=== PATIENT | male | born 1950 | race Asian ===

== ENCOUNTER 2018-05-22 20:45 | Emergency (ER) | payer MEDICARE, OTHER ==
[~2018-05-22] VITALS: Ht 167.6 cm; Wt 65.9 kg
[2018-05-22] MEDS ORDERED: SYNT125T PO (20:53)
[2018-05-22] MEDS ORDERED: METF10004 PO (20:53)
[2018-05-22] MEDS ORDERED: LIDOCAINE 1% SDV INJ 30 ML VIAL SC SCH (21:30)
[2018-05-22] MEDS ORDERED: LIDOCAINE 1% MDV 20ML VIAL SC SCH (21:30)
[2018-05-22] MEDS ORDERED: NORC1TAB4 PO ×2 (22:15→22:19)
[2018-05-22 22:42] VITALS: BP 154/74
--- NOTE | 2018-05-22 23:59 | REP ---
Clinical: Status post reduction. Technique: AP and oblique views of the left hand. Findings: The patient is status post satisfactory reduction at the first carpometacarpal joint . Overlying cast material limits evaluation. No obvious acute fracture. Impression: Satisfactory reduction. No acute fracture. Electronically Signed by Ferdinand Washington MD 05/22/2018 11:51 P
--- NOTE | 2018-05-23 | REP ---
Clinical: Status post reduction. Technique: AP and lateral views of the left wrist. Findings: The patient is noted to be post satisfactory reduction at the first carpometacarpal joint. No obvious acute fracture identified. Evaluation is limited due to overlying cast material. Impression: Limited by cast material. Satisfactory reduction at the first carpometacarpal joint. No obvious acute fracture. Electronically Signed by Ferdinand Washington MD 05/22/2018 11:52 P
--- NOTE | 2018-05-23 00:02 | REP ---
Clinical: Trauma. Technique: AP, lateral, bilateral oblique views of the left hand. Findings: Lateral dislocation at the first carpometacarpal joint is appreciated. No obvious acute fracture. Overlying soft tissue swelling suggested without subcutaneous emphysema or foreign body. Impression: Lateral dislocation at the carpometacarpal joint. Electronically Signed by Ferdinand Washington MD 05/22/2018 11:54 P
--- NOTE | 2018-05-23 00:03 | REP ---
Clinical: Trauma/fall. Technique: AP and lateral views of the left forearm. Findings: No acute fracture or dislocation is appreciated. Known first carpometacarpal joint dislocation is poorly evaluated on current examination. Impression: Normal appearance of the forearm without obvious acute fracture or dislocation. Known first carpometacarpal joint dislocation incompletely evaluated. Electronically Signed by Ferdinand Washington MD 05/22/2018 11:54 P
--- NOTE | 2018-05-23 09:15 | ER ---
DATE OF CONSULTATION: 05/22/2018 REASON FOR CONSULTATION: Left thumb dislocation. CHIEF COMPLAINT: Left thumb and wrist pain. HISTORY OF PRESENT ILLNESS: Young Kelley is a 67-year-old [id number] male who sustained a fall to outstretched left upper extremity earlier today after slipping on the ground and resulting in immediate left thumb pain and deformity and difficulty using his thumb. He presented to the emergency room for evaluation. He was found to have left thumb carpometacarpal dislocation. Orthopedics was consulted for definitive management. The patient denies any antecedent chest pain, calf pain, headache, dizziness, shortness of breath or other constitutional symptoms. He localizes pain to the left thumb. He denies any associated tingling, numbness or burning sensations. PAST MEDICAL HISTORY: Diabetes. Hypertension. Hypercholesterolemia. Thyroid cancer. MEDICATIONS: - metformin - Synthroid - antihypertensive and cholesterol medication, he does not know the names. ALLERGIES: NO KNOWN DRUG ALLERGIES. PAST SURGICAL HISTORY: Thyroidectomy. FAMILY HISTORY: Noncontributory. SOCIAL HISTORY: The patient is retired. He lives with his . He does not smoke, drink or use elicit drugs. REVIEW OF SYSTEMS: 14-point review of systems was reviewed and unremarkable. PHYSICAL EXAMINATION: Vital signs: Temperature 98.8, respiratory rate 16, blood pressure 166/88. Heart rate 84. General: This is a well-nourished male, appears stated age in no acute distress. Neurologic: He is awake, alert and oriented to person, place and time. He has intact sensory and motor function in his left upper extremity radial, medial, and ulnar anterior interosseous nerve (AIN) and posterior interosseous nerve (PIN) distributions. Cardiovascular: 2+ radial pulse. Brisk capillary refill to all digits to the left upper extremity. Musculoskeletal: Focused physical exam of the left upper extremity demonstrates obvious visible deformity about the thumb metacarpal base. He is maximally tender about the thumb metacarpal base. He is able to independently flex and extend at the left thumb IP joint but has difficulty moving the CMC joint He is able to flex and extend at the MCP joint. There are no open wounds or abrasions. RADIOGRAPHS: Plain radiographs of the wrist and hand demonstrate a dorsal carpometacarpal dislocation of the left thumb. PLAN: I discussed with the patient the nature of his injury, the risks, benefits, indications and alternatives of operative management and I believe this could be easily reduced with a closed reduction and splinting. The patient expressed understanding and provided written informed consent. PROCEDURE NOTE: The patient's skin was carefully prepped. I used 5 mL of 1% lidocaine without epinephrine and injected into the thumb carpometacarpal joint using mini C-arm fluoroscopic guidance. I then performed a closed reduction and placed the patient into a well-padded spike splint. I used mini C-arm fluoroscopy to confirm concentric reduction after splinting. This ended the procedure. The patient tolerated it well. POST PROCEDURE PLAN: Patient will be discharged from the ER today. He will follow up in the office in 7-10 days for repeat examination of the metacarpal base followed by transition to either removable splint or cast. VALERIANO
== END 2018-05-22 22:44 | disposition home or self-care (01) ==
LOC: M ED 20:45
DX: S63.045A Dislocation of carpometacarpal joint of left thumb, initial encounter (principal); W00.9XXA Unspecified fall due to ice and snow, initial encounter; Y92.89 Other specified places as the place of occurrence of the external cause; E11.9 Type 2 diabetes mellitus without complications; I10 Essential (primary) hypertension; E78.00 Pure hypercholesterolemia, unspecified; Z85.850 Personal history of malignant neoplasm of thyroid; Z79.899 Other long term (current) drug therapy; Z79.84 Long term (current) use of oral hypoglycemic drugs

== ENCOUNTER → 2019-04-08 | Outpatient (CLI) | payer MEDICARE, OTHER ==
[~2019-04-08] MED LIST: METF10004 PO; NORC1TAB7 PO; SYNT125T PO
--- NOTE | 2019-04-09 16:34 | ECHO ---
DATE OF PROCEDURE: 04/08/2019 AGE: 68 GENDER: Male HEIGHT: 66 inches WEIGHT: 155 pounds BODY SURFACE AREA: 1.79 m2 PATIENT LOCATION: Outpatient REFERRING PHYSICIAN: Dr. Marc Burch INDICATION: Hypertension/abnormal EKG. Coronary risk factors. 2-D MEASUREMENTS: RV: 2.4 cm LV: 5.3 cm Septum: 1.0 cm Posterior wall: 1.0 cm Aortic root: 3.7 cm LA: 3.8 cm LVEF: 65% DOPPLER MEASUREMENTS: AV: 1.21 m/s LVOT: 1.06 m/s LVOT diameter: 2.0 cm MV-E: 63, A: 74, EA ratio: 0.85 Early mitral deceleration time: 161 ms E prime medial: 5.4, A prime medial: 9.6, E prime lateral: 8.2 average E/E prime ratio 9.3 PCWP: 13.4 mmHg PV: 0.6 m/s Pulmonary artery acceleration time: 106 ms RVSP: 34 mmHg IVC: Could not be visualized. COMMENTS Normal sinus rhythm with subtle interventricular conduction disturbance. M-mode and two-dimensional echocardiography was performed with pulsed, continuous wave, color flow and tissue Doppler studies. Normal left ventricular size, wall thickness and wall motion. . Normal left atrial size but Doppler evidence of grade 1 LV diastolic dysfunction and borderline elevated estimated mean left atrial pressure. Normal right heart chamber sizes and motion with Doppler evidence of borderline pulmonary hypertension. Unable to visualize his inferior vena cava to further estimate his central venous pressure. Subtle aortic valvular sclerosis without stenosis and only trace insufficiency. Normal aortic root size. Normal-appearing mitral valvular apparatus leaflet excursion with very mild insufficiency (physiologic). Normal appearing tricuspid valve with mild insufficiency (physiologic). No apparent intracardiac mass or pericardial effusion. MTDD
== END ==
LOC: M CARPUL 08:16
PROVIDERS: ATTEND Internal Medicine
DX: E11.69 Type 2 diabetes mellitus with other specified complication (principal); E78.5 Hyperlipidemia, unspecified; R53.1 Weakness; Z79.899 Other long term (current) drug therapy

== ENCOUNTER → 2021-05-27 | Outpatient (REF) | payer OTHER ==
[2021-05-27 19:11] LABS: HEMOGLOBIN A1c 7.5 %
== END ==
LOC: M LAB REF 13:28
PROVIDERS: ATTEND Internal Medicine Endocrinology, Diabetes & Metabolism
DX: E11.65 Type 2 diabetes mellitus with hyperglycemia (principal); E89.0 Postprocedural hypothyroidism

== ENCOUNTER → 2021-08-30 | Outpatient (REF) | payer OTHER ==
[2021-08-30 18:01] LABS: CREATININE,RANDOM URINE 19.5 MG/DL; TOTAL PROTEIN,RANDOM URINE 23.6 MG/DL (0.0-12.0)
[2021-08-30 18:03] LABS: TOTAL PROTEIN 7.2 GM/DL (6.4-8.2)
[2021-08-31 14:52] LABS: ALBUMIN 4.25 GM/DL (3.29-5.55); ALPHA-1-GLOBULIN % 3.9 % (2.9-4.9); ALPHA-1-GLOBULINS 0.28 GM/DL (0.17-0.41); ALPHA-2-GLOBULINS 0.68 GM/DL (0.42-0.99); ALPHA-2-GLOBULINS % 9.5 % (7.1-11.8); BETA-1-GLOBULINS 0.38 GM/DL (0.28-0.60); BETA-1-GLOBULINS % 5.3 % (4.7-7.2); BETA-2-GLOBULINS 0.42 GM/DL (0.19-0.55); BETA-2-GLOBULINS % 5.8 % (3.2-6.5); GAMMA GLOBULIN % 16.5 % (11.1-18.8); GAMMA GLOBULINS 1.19 GM/DL (0.65-1.58)
== END ==
LOC: M LAB REF 16:55
PROVIDERS: ATTEND Internal Medicine Nephrology
DX: N18.32 Chronic kidney disease, stage 3b (principal)

== ENCOUNTER → 2021-09-08 | Outpatient (CLI) | payer OTHER | LOC: M WHC 13:29 | PROVIDERS: ATTEND Internal Medicine Nephrology | DX: N18.4 Chronic kidney disease, stage 4 (severe) (principal); R30.0 Dysuria; N40.1 Benign prostatic hyperplasia with lower urinary tract symptoms ==

== ENCOUNTER → 2022-05-10 | Outpatient (REF) | payer OTHER ==
[2022-05-10 14:47] LABS: APPEARANCE, URINE MANUAL CLEAR (CLEAR); COLOR, URINE MANUAL YELLOW (YELLOW)
[2022-05-10 14:48] LABS: BILIRUBIN, URINE MANUAL NEGATIVE (NEGATIVE); BLOOD URINE MANUAL TRACE (NEGATIVE); GLUCOSE, URINE (UA) MANUAL 4+(1000 MG/DL) mg/dL (NEGATIVE); KETONE, URINE MANUAL NEGATIVE (NEGATIVE); LEUKOCYTE ESTERASE, URINE MAN NEGATIVE (NEGATIVE); NITRITE, URINE MANUAL NEGATIVE (NEGATIVE); SPECIFIC GRAVITY,URINE MANUAL 1.005 (1.002-1.035); UROBILINOGEN, URINE MANUAL NORMAL (NORMAL)
[2022-05-10 14:49] LABS: PROTEIN, URINE MANUAL TRACE mg/dL (NEGATIVE)
[2022-05-10 15:22] LABS: BACTERIA, URINE SMALL AMOUNT; HYALINE CAST, URINE NONE SEEN /lpf (0-1); SQUAMOUS EPITHELIAL CELL URINE SMALL AMOUNT /hpf (SMALL AMT)
== END ==
LOC: M SMT 12:37
PROVIDERS: ATTEND Nurse Practitioner Women's Health
DX: R35.1 Nocturia (principal)

== ENCOUNTER → 2023-01-19 | Outpatient (REF) | payer OTHER ==
[2023-01-19 18:36] LABS: TOTAL PROTEIN,RANDOM URINE 38.5 MG/DL (0.0-14.0)
== END ==
LOC: M LAB REF 17:13
PROVIDERS: ATTEND Internal Medicine Nephrology
DX: N18.32 Chronic kidney disease, stage 3b (principal); E11.21 Type 2 diabetes mellitus with diabetic nephropathy